=== PATIENT | female | born 1975 | race Caucasian/White ===

== ENCOUNTER → 2016-11-17 | Outpatient (CLI) | payer BC ==
--- NOTE | 2016-11-17 10:47 | MA ---
Screening Digital Mammogram With iCAD Analysis Clinical Indications: Routine screening. Technique: Standard cephalocaudal and mediolateral oblique projections were obtained. This examinatio n was processed by the iCAD computer aided detection system. Comparison: Mammographic studies December 2015, October 2015, and November 2010 as well as breast ultras ound examinations November 2010, December 2010, October 2015, and December 2015. Breast Density: Type C; Heterogeneously dense. Findings: CAD was reviewed. The rounded opacity in the upper central left breast which has been shown to represent a simple cyst has increased in size now currently measuring 4 cm in diameter. No spicu lated masses, suspicious calcifications, or other signs of malignancy are identified. There has been no significant change in the appearance of either breast. Impression: Benign mammography, BI-RADS 2. Recommendation: Routine mammographic screening in one year as long as physical examination is negativ [facility]. Dense breast parenchyma diminishes mammographic sensitivity. Negative mammography should not preclude additional workup of a clinically suspicious finding. The patient's information is entered into a reminder system with a target due date for her next mammo gram.
== END ==
LOC: BMCIMAGING 08:40
DX: Z12.31 Encounter for screening mammogram for malignant neoplasm of breast (principal)
CPT/HCPCS: G0202

== ENCOUNTER → 2017-10-21 | Outpatient (CLI) | payer BC | LOC: FIMAGING 12:16 | PROVIDERS: ATTEND Physician Assistant | DX: N63.24 Unspecified lump in the left breast, lower inner quadrant (principal) ==

== ENCOUNTER → 2018-09-19 | Outpatient (CLI) | payer BC | LOC: FIMAGING 14:55 | PROVIDERS: ATTEND Physician Assistant | DX: Z12.31 Encounter for screening mammogram for malignant neoplasm of breast (principal) ==

== ENCOUNTER → 2018-11-29 | Outpatient (CLI) | payer BC | LOC: FIMAGING 10:27 | PROVIDERS: ATTEND Physician Assistant | DX: N63.10 Unspecified lump in the right breast, unspecified quadrant (principal) ==